=== PATIENT | female | born 1980 | race Caucasian/White ===

== ENCOUNTER 2020-09-29 20:32 | Emergency (ER) ==
[2020-09-29] MEDS ORDERED: Ibuprofen 800 MG TAB ONE (21:30)
--- NOTE | 2020-09-29 22:01 | RAD ---
TWO VIEWS CHEST: 09/29/20 PROVIDED CLINICAL HISTORY: Injury. FINDINGS: Cardiac and mediastinal silhouette is within normal limits. No focal consolidation, pleural fluid or pneumothorax apparent. The bony thorax appears grossly intact. IMPRESSION: No evidence for an acute cardiopulmonary process. POS: LOCO
--- NOTE | 2020-09-29 22:03 | RAD ---
RIGHT FOREARM RADIOGRAPHS TWO VIEWS: 09/29/20 PROVIDED CLINICAL HISTORY: Pain status post injury. FINDINGS: There is no evidence for fracture or other acute osseous abnormality. If there is persistent clinical concern, conservative management and follow-up imaging are advised. IMPRESSION: As above. POS: LOCO
== END 2020-09-29 22:35 | disposition home or self-care (01) ==
LOC: ERS 20:32
DX: S20.211A Contusion of right front wall of thorax, initial encounter (principal); M25.531 Pain in right wrist; Y04.2XXA Assault by strike against or bumped into by another person, initial encounter
CPT/HCPCS: 71046